=== PATIENT | male | born 1955 | race Two or more races ===

== ENCOUNTER 2016-06-24 11:38 | Outpatient (CLI) ==
--- NOTE | 2016-06-24 12:27 | DI ---
EXAM: Chest two views HISTORY: Shortness of breath, dyspnea COMPARISON: None TECHNIQUE: Two views of the chest were performed FINDINGS: The lungs are clear, excepting for granulomatous calcification. There is no pleural effu love or pneumothorax. The heart is normal in size. The mediastinal contour is normal. There are n o acute abnormalities of the bones. Surgical anchor left humeral head. IMPRESSION: No acute cardiopulmonary process.
== END 2016-06-24 11:39 | disposition home or self-care (01) ==
LOC: RAD 11:38
PROVIDERS: ATTEND Physician Assistant Medical
DX: R06.02 Shortness of breath (principal)